=== PATIENT | male | born 1970 | race Caucasian/White ===

== ENCOUNTER → 2021-03-08 | Outpatient (CLI) | payer MEDICAID ==
[~2021-03-08] MED LIST: AMLO5TAB88 PO; ASPI-1497 PO; ATOR80TA PO; GABA300S PO; GLIP5TAB12 PO; HYDR-4001 MT; INSLIS SUBCUT; INSU100I28 SQ; METF-416 MT; METO25TA6 PO; RIVA20TA PO
== END | disposition home or self-care (01) ==
LOC: MRI 10:50
DX: S83.242A Other tear of medial meniscus, current injury, left knee, initial encounter (principal); S83.282A Other tear of lateral meniscus, current injury, left knee, initial encounter; M17.12 Unilateral primary osteoarthritis, left knee; M25.462 Effusion, left knee; M25.762 Osteophyte, left knee; X58.XXXA Exposure to other specified factors, initial encounter; Y93.89 Activity, other specified; Y92.89 Other specified places as the place of occurrence of the external cause; Y99.8 Other external cause status
CPT/HCPCS: 73721